=== PATIENT | male | born 1985 | race Caucasian/White ===

== ENCOUNTER 2017-01-08 15:47 | Emergency (ER) | payer BC ==
[~2017-01-08] VITALS: Ht 172.7 cm; Wt 81.6 kg
[2017-01-08 16:06] VITALS: BP 132/83
[2017-01-08] MEDS ORDERED: ORPH100T PO (16:19)
[2017-01-08] MEDS ORDERED: NAPR550T PO (16:19)
--- NOTE | 2017-01-08 16:19 | PHYS DOC ---
Past Medical History Past Medical History: No Pertinent History Past Surgical History: Tonsillectomy Alcohol Use: Occasionally Drug Use: Marijuana Adult General Chief Complaint Chief Complaint: BACK PAIN - NO INJURY [facility] HPI Patient is a 31 year old male presents emergency Department with complaint of atraumatic left lower back pain that began approximately 4-5 days ago. Patient states that he has been working out at the gym lately, but does not identify any type of injury there. 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 Patient denies a history of vertebral fractures, spinal cord injuries or neuromuscular diseases. Patient states that his pain typically gets worse when he is changing positions from lying to standing or standing to sitting. He denies any radiation of the pain, saddle anesthesia or incontinence of urine or bowel. He denies flank pain, fever or dysuria. Of incidental note, patient states that he called into work today and is asking for a work note. Review of Systems Review of Systems Constitutional: Denies fever or chills [] Eyes: Denies change in visual acuity, redness, or eye pain [] HENT: Denies nasal congestion or sore throat [] Respiratory: Denies cough or shortness of breath [] Cardiovascular: No additional information not addressed in HPI [] GI: Denies abdominal pain, nausea, vomiting, bloody stools or diarrhea [] : Denies dysuria or hematuria [] Musculoskeletal: Denies back pain or joint pain [] Integument: Denies rash or skin lesions [] Neurologic: Denies headache, focal weakness or sensory changes [] Endocrine: Denies polyuria or polydipsia [] Allergies Allergies Allergies Coded Allergies Type Severity Reaction Last Updated Verified No Known Drug Allergies 01/08/17 No Physical Exam Physical Exam Constitutional: Well developed, well nourished, no acute distress, non-toxic appearance. [] HENT: Normocephalic, atraumatic, bilateral external ears normal, oropharynx moist, no oral exudates, nose normal. [] Eyes: PERRLA, EOMI, conjunctiva normal, no discharge. [] Neck: Normal range of motion, no tenderness, supple, no stridor. [] Cardiovascular:Heart rate regular rhythm, no murmur [] Lungs & Thorax: Bilateral breath sounds clear to auscultation [] Abdomen: Bowel sounds normal, soft, no tenderness, no masses, no pulsatile masses. [] Skin: Warm, dry, no erythema, no rash. [] Back: Patient's back is normal in appearance. There are no overlying skin lesions suggestive of shingles. There is no CVA tenderness. There is tenderness to palpation of the left paraspinous soft tissues at the level of L2-L4. There is no midline tenderness. There is no palpable defect, deformity, step-off or spasm. Extremities: No tenderness, no cyanosis, no clubbing, ROM intact, no edema. [] Neurologic: Alert and oriented X 3, normal motor function, normal sensory function, no focal deficits noted. Bilateral lower extremities are without dystrophic changes. Strength is equal. Patient relates with a steady, unaided gait. Psychologic: Affect normal, judgement normal, mood normal. [] Current Patient Data Vital Signs Vital Signs Date Time Temp Pulse Resp B/P (MAP) Pulse Ox O2 Delivery O2 Flow Rate FiO2 01/08/17 16:06 97.6 77 16 99 Room Air 97.6 EKG EKG [] Radiology/Procedures Radiology/Procedures [] Course & Med Decision Making Course & Med Decision Making Pertinent Labs and Imaging studies reviewed. (See chart for details) [] Dragon Disclaimer Dragon Disclaimer This electronic medical record was generated, in whole or in part, using a voice recognition dictation system. Departure Departure Impression: Primary Impression: Back pain Disposition: 01 HOME, SELF-CARE Condition: GOOD Patient Instructions: Back Pain, Adult, [id number] Additional Instructions: 1. Take medications as prescribed. 2. Review the discharge instructions for self-care and reasons to return to the emergency department. 3. Use the pamphlet provided for assistance in finding a primary care doctor in the area to address your medical concerns and provide follow-up care. Scripts Orphenadrine Citrate (ORPHENADRINE CITRATE) 100 Mg Tablet.er 100 MG PO twice a day for muscle relaxer for 14 Days Prov: SHEILA MARTÍNEZ 01/08/17 Naproxen Sodium (ANAPROX DS) 550 Mg Tablet 550 MG PO twice a day for back pain, #30 Prov: SHEILA MARTÍNEZ 01/08/17 Problem Qualifiers Primary Impression: Back pain Back pain location: low back pain Chronicity: acute Back pain laterality: left Sciatica presence: without sciatica Qualified Codes: M54.5 - Low back pain SHEILA MARTÍNEZ January 08, 2017 16:19
== END 2017-01-08 16:41 | disposition home or self-care (01) ==
LOC: ER 15:47
DX: M54.5 Low back pain (principal); F12.10 Cannabis abuse, uncomplicated
CPT/HCPCS: 99283

== ENCOUNTER 2018-02-10 02:57 | Emergency (ER) | payer BC ==
[2018-02-10 03:39] LABS: AMPHETAMINE/METHAMPHETAMINE NEG (NEG); BARBITURATES NEG (NEG); BENZODIAZEPINES NEG (NEG); CANNABINOIDS NEG (NEG); COCAINE NEG (NEG); ETHANOL, URINE NEG (NEG); METHADONE NEG (NEG); OPIATES NEG (NEG); PHENCYCLIDINE NEG (NEG)
== END 2018-02-10 04:20 | disposition home or self-care (01) ==
LOC: ER 02:57
DX: F31.9 Bipolar disorder, unspecified (principal); F41.9 Anxiety disorder, unspecified; F12.10 Cannabis abuse, uncomplicated
CPT/HCPCS: 80307; 99284